=== PATIENT | female | born 1975 | race Caucasian/White ===

== ENCOUNTER → 2021-03-16 | Outpatient (CLI) | payer BC ==
--- NOTE | 2021-03-16 15:31 | Diagnostic Imaging Report ---
Right ankle at 3:01. Indication: Ankle pain, injury. 3 views were obtained. There are no prior studies available for comparison. There is no fracture, dislocation or acute bony abnormality evident. The ankle mortise is not widened and the talar dome is smooth. There is soft tissue edema over the lateral malleolus. Impression: There is soft tissue edema over the lateral malleolus but there is no evidence for an acute bony abnormality. Dictated by: Dictated on workstation # [id number]
--- NOTE | 2021-03-16 15:31 | Diagnostic Imaging Report ---
EXAMINATION: Right foot. INDICATION: Injury. Three views were obtained. There are no prior studies available for comparison. FINDINGS: There is no fracture, dislocation, or acute bony abnormality evident. The Lisfranc joint seems well maintained. There is no evidence for a calcaneal spur. The soft tissues are unremarkable. IMPRESSION: There is no evidence for an acute bony abnormality. Dictated by: Dictated on workstation # [id number]
== END ==
LOC: RAD FS 14:41
PROVIDERS: ATTEND Family Medicine
DX: M79.89 Other specified soft tissue disorders (principal)
CPT/HCPCS: 73610; 73630

== ENCOUNTER → 2021-04-22 | Outpatient (CLI) | payer BC ==
--- NOTE | 2021-04-22 10:34 | Diagnostic Imaging Report ---
INDICATION: ANKLE PAIN, RIGHT COMPARISON: 03/16/2021. FINDINGS: 3 views of the right ankle were obtained. There is no acute fracture or dislocation. No focal osseous lesions are seen. There is persistent, but improved soft tissue swelling. There are no radiopaque foreign bodies. IMPRESSION: 1. No acute fracture or dislocation in the right ankle. Dictated by: Dictated on workstation # [id number]
== END ==
LOC: RAD FS 09:25
PROVIDERS: ATTEND Nurse Practitioner
DX: M25.571 Pain in right ankle and joints of right foot (principal)
CPT/HCPCS: 73610

== ENCOUNTER → 2022-04-19 | Outpatient (CLI) | payer BC ==
--- NOTE | 2022-04-19 09:02 | Diagnostic Imaging Report ---
PROCEDURE: CT abdomen and pelvis without contrast. TECHNIQUE: Multiple contiguous axial images were obtained through the abdomen and pelvis without the use of intravenous contrast. Auto Exposure Controls were utilized during the CT exam to meet ALARA standards for radiation dose reduction. INDICATION: Right-sided abdominal pain COMPARISON: None available FINDINGS: The visualized lung bases are clear. A 5.4 x 4.4 cm masslike hypodensity is noted predominantly within the caudate lobe of the liver. However, an additional 2.1 cm hypodense masslike density is also noted within the superior aspect right hepatic lobe, series 3, image 30. Calcified splenic granuloma. The unenhanced spleen is otherwise unremarkable. The adrenal glands are unremarkable. The pancreas is unremarkable. The gallbladder is unremarkable. The bilateral kidneys are unremarkable without evidence of hydronephrosis. No aneurysmal dilatation of the abdominal aorta. The appendix is unremarkable. The urinary bladder is unremarkable. The uterus is not visualized, likely surgically absent. No abnormal adnexal mass lesion. No bowel obstruction or pneumatosis. No significant adenopathy, free air, or free fluid in abdomen or pelvis. No acute osseous abnormality. IMPRESSION: Two masslike hypodensities within the liver as described above. These are of uncertain etiology not completely evaluated on this examination. Recommend preferably MRI or CT of the abdomen with and without contrast using hepatic mass protocol for further evaluation. These hypodensities could relate to benign hemangioma or hepatomas, the other neoplastic process needs to be excluded. Additional findings as above. Dictated by: Dictated on workstation # [id number]
== END ==
LOC: RAD FS 08:29
PROVIDERS: ATTEND Family Medicine
DX: K76.89 Other specified diseases of liver (principal)
CPT/HCPCS: 74176